=== PATIENT | female | born 1955 | race Caucasian/White ===

== ENCOUNTER 2018-01-18 14:04 | Observation (INO) | payer OTHER ==
[~2018-01-18] VITALS: Ht 162.6 cm; Wt 56.4 kg
[2018-01-18 15:11] LABS: BASOPHIL (%) 0.9 % (0-1); BASOPHIL COUNT 0.1 K/uL (0-0.1); EOSINOPHIL (%) 0.7 % (0-5); HEMATOCRIT 38.2 % (36.0-46.0); IMMATURE GRANULOCYTE (%) 0.2 % (0.0-0.7); LYMPHOCYTE (%) 17.4 % (15-42); MCH 32.3 PG (29.0-34.0); MCV 94.8 FL (83-99); MONOCYTE (%) 5.1 % (3-12); MONOCYTE COUNT 0.3 K/uL (0-0.8); NEUTROPHIL (%) 75.7 % (45-76); NEUTROPHIL COUNT 4.2 K/uL (1.8-6.4); PLATELET COUNT 201 K/uL (156-360); RBC DIS.WIDTH-CV 11.8 % (11.8-14.6); RBC DIS.WIDTH-SD 41.1 % (39-53); RED BLOOD COUNT 4.03 M/uL (3.80-5.20); WHITE BLOOD COUNT 5.5 K/uL (4.1-10.2)
[2018-01-18 15:20] LABS: ALBUMIN 4.4 g/dL (3.2-4.8); CHLORIDE 103 mEq/L (99-109); POTASSIUM 3.7 mEq/L (3.7-5.4); SODIUM 140 mEq/L (136-147)
[2018-01-18 15:22] LABS: GLUCOSE 131 mg/dL (70-99)
[2018-01-18 15:23] LABS: TOTAL PROTEIN 6.7 g/dL (6.4-8.3)
[2018-01-18 15:24] LABS: TOTAL BILIRUBIN 0.6 mg/dL (0.0-1.0)
[2018-01-18 15:26] LABS: ALKALINE PHOSPHATASE 53 IU/L (3-129); CREATININE 0.7 mg/dL (0.6-1.3)
[2018-01-18 15:27] LABS: UREA NITROGEN (BUN) 17 mg/dL (9-23)
[2018-01-18 15:28] LABS: AST (GOT) 27 IU/L (2-34); DIRECT BILIRUBIN 0.2 mg/dL (0.0-0.3)
[2018-01-18 15:29] LABS: ALT (GPT) 27 IU/L (3-49)
[2018-01-18 15:30] LABS: LIPASE 33 U/L (1.0-51.0)
[2018-01-18 15:33] LABS: GFR ESTIMATE (CALCULATED) > 59 mL/min/; TROP-I INTERPRETATION NEGATIVE; TROPONIN-I < 0.01 ng/mL (0.0-0.30)
[2018-01-18 16:24] LABS: APPEARANCE CLEAR ((CLEAR)); BILIRUBIN NEGATIVE; BLOOD NEGATIVE; COLOR STRAW ((YELLOW)); GLUCOSE (STRIP) NEGATIVE; KETONES NEGATIVE; LEUKOCYTES NEGATIVE; NITRITE NEGATIVE; PROTEIN (STRIP) NEGATIVE; SPECIFIC GRAVITY 1.006 (1.000-1.030); UCUL ADDED? NO; UROBILINOGEN 0.2 MG/DL (0.2-1.0)
[2018-01-18] MEDS ORDERED: LEXAPRO10 MG PO (18:01)
[2018-01-18] MEDS ORDERED: ZANTAC150 MG PO (18:02)
[2018-01-18] MEDS ORDERED: WOMEN'S 50 PLU1 EACH PO (18:02)
[2018-01-18] MEDS ORDERED: BIOTIN1 MG PO (18:03)
[2018-01-18] MEDS ORDERED: DAILY VITE1 EAC1 PO (18:03)
[2018-01-18] MEDS ORDERED: MAGNESIUM OXID200 MG PO (18:03)
[2018-01-18 20:13] LABS: CARBON DIOXIDE (BICARBONATE) 35.7 MEQ/L (20-31)
[2018-01-18 20:20] LABS: SERUM ETHYL ALCOHOL < 10 mg/dL
[2018-01-18 21:30] VITALS: BP 117/58
[2018-01-18 22:10] LABS: HDL CHOLESTEROL 75 MG/DL (Desirable>=50); LDL CHOLESTEROL 166 mg/dL (Desirable<100); NON-HDL CHOLESTEROL 174 mg/dL (Desirable<160); TOTAL CHOLESTEROL 249 mg/dL (Desirable<200); TRIGLYCERIDES 39 MG/DL (Normal: <150)
[2018-01-18 22:33] LABS: TROP-I INTERPRETATION NEGATIVE; TROPONIN-I < 0.01 ng/mL (0.0-0.30)
[2018-01-18 23:42] VITALS: BP 102/57
[2018-01-19 00:42] LABS: AMPHETAMINE NEGATIVE (500 ng/mL); BARBITURATES NEGATIVE (200 ng/mL); BENZODIAZEPINES NEGATIVE (150 ng/mL); BUPRENORPHINE NEGATIVE (10 ng/mL); COCAINE NEGATIVE (150 ng/mL); METHADONE NEGATIVE (200 ng/mL); METHAMPHETAMINE NEGATIVE (500 ng/mL); OPIATES (MORPHINE) NEGATIVE (100 ng/mL); OXYCODONE NEGATIVE (100 ng/mL); PHENCYCLIDINE NEGATIVE (25 ng/mL); PROPOXYPHENE NEGATIVE (300 ng/mL); THC CANNABINOIDS NEGATIVE (50 ng/mL); TRICYCLIC ANTIDEPRESSANTS NEGATIVE (300 ng/mL)
[2018-01-19 02:14] LABS: TROP-I INTERPRETATION NEGATIVE; TROPONIN-I < 0.01 ng/mL (0.0-0.30)
[2018-01-19 04:01] VITALS: BP 94/51
[2018-01-19 07:56] VITALS: BP 95/50
[2018-01-19] MEDS ORDERED: ATORVASTATIN CA80 MG PO (10:39)
[2018-01-19] MEDS ORDERED: ASPIR-LOW81 MG PO (10:41)
[2018-01-19 10:57] LABS: FOLIC ACID (FOLATE) > 22.0 NG/ML (5.0-22.0)
[2018-01-19 11:25] VITALS: BP 110/54
[2018-01-19 12:04] LABS: HEMOGLOBIN A1c (GLYCOHEMOGLOB) 4.8 % (Below 5.7)
== END 2018-01-19 15:18 | disposition home or self-care (01) ==
LOC: EME 14:04 → EDOF 19:49 → CANRESERV 19:54 → ENRESERV 19:54 → CANRESERV 20:39 → ENRESERV 20:39 → 4SOUTH 20:40
PROVIDERS: Emergency Medicine; Physician Assistant; Physician Assistant Medical
DX: G45.4 Transient global amnesia (principal); R07.89 Other chest pain; I67.2 Cerebral atherosclerosis; E78.5 Hyperlipidemia, unspecified; F32.9 Major depressive disorder, single episode, unspecified; F41.9 Anxiety disorder, unspecified; Z90.49 Acquired absence of other specified parts of digestive tract; Z82.3 Family history of stroke; Z82.0 Family history of epilepsy and other diseases of the nervous system; Z80.0 Family history of malignant neoplasm of digestive organs; Z83.3 Family history of diabetes mellitus; Z88.0 Allergy status to penicillin
CPT/HCPCS: 70450; 70551; 71046; 80048; 80061; 80076; 81003; 82140; 82607; 82746; 82803; 83036; 83605; 83690; 83880; 84443; 84484; 85025; 85610; 85730; 93005; 93880; 99281; 99285; G0378; G0480; G8978 GP CH; G8979 GP CH; G8980 GP CH; J1644